=== PATIENT | female | born 1960 | race African-American/Black ===

== ENCOUNTER 2019-07-28 00:57 | Emergency (ER) | payer SELFPAY ==
[~2019-07-28] VITALS: Ht 157.5 cm; Wt 68.0 kg
[2019-07-28] MEDS ORDERED: VISCOUS LIDOCAINE 2% 15 ML UDC MM ONE (03:00)
[2019-07-28] MEDS ORDERED: MAGNESIUM/ALUMINUM HYDROXIDE/SIMETHICONE 30ML UDC PO ONE (03:00)
[2019-07-28] MEDS ORDERED: DIPHENHYDRAMINE 12.5MG/5ML UDC PO ONE (03:00)
[2019-07-28 04:50] VITALS: BP 129/79
== END 2019-07-28 04:51 | disposition home or self-care (01) ==
LOC: ER 00:57
DX: T18.9XXA Foreign body of alimentary tract, part unspecified, initial encounter (principal); K22.8 Other specified diseases of esophagus; Z88.2 Allergy status to sulfonamides; Z91.011 Allergy to milk products; X58.XXXA Exposure to other specified factors, initial encounter; Y93.89 Activity, other specified; Y92.89 Other specified places as the place of occurrence of the external cause; Y99.8 Other external cause status
CPT/HCPCS: 99284; Q0163

== ENCOUNTER 2024-01-06 20:26 | Emergency (ER) | payer SELFPAY ==
[~2024-01-06] VITALS: Ht 157.5 cm; Wt 63.5 kg
[2024-01-06 20:28] VITALS: PULSE 85; RESP 16
[2024-01-06 20:35] VITALS: BP 144/90; TEMP 98.2; O2SAT 98
[2024-01-06] MEDS: MAGNESIUM/ALUMINUM HYDROXIDE/SIMETHICONE 30ML UDC PO STA (21:41)
[2024-01-06] MEDS ORDERED: MAG355OR21 MT (23:31)
== END 2024-01-07 00:10 | disposition home or self-care (01) ==
LOC: ER 20:26
DX: R09.A2 Foreign body sensation, throat (principal); Z98.890 Other specified postprocedural states; Z88.2 Allergy status to sulfonamides
CPT/HCPCS: 70360; 71045; 99283; 99284